=== PATIENT | male | born 1960 | race African-American/Black ===

== ENCOUNTER 2017-05-16 10:02 | Emergency (ER) | payer BC ==
[~2017-05-16] VITALS: Ht 182.9 cm; Wt 65.0 kg
[~2017-05-16 10:02] MED LIST: AMOXICILLIN500 MG OR; LORTAB 10 PO; NAPROSYN500 MG PO; NO HOME MEDS
[2017-05-16] MEDS ORDERED: TRAMADOL HYDROC50 MG PO (10:26)
[2017-05-16] MEDS ORDERED: EC-NAPROSYN500 MG PO (10:26)
[2017-05-16 10:30] VITALS: BP 141/81
== END 2017-05-16 10:30 | disposition home or self-care (01) | DRG 74 ==
LOC: ED 10:02
DX: M54.12 Radiculopathy, cervical region (principal)

== ENCOUNTER 2022-08-22 08:28 | Emergency (ER) | payer BC ==
[~2022-08-22] VITALS: Ht 182.9 cm; Wt 83.9 kg
[~2022-08-22 08:28] MED LIST changes: +EC-NAPROSYN500 MG PO; +TRAMADOL HYDROC50 MG PO
[2022-08-22 09:23] VITALS: BP 152/91
[2022-08-22 09:30] VITALS: BP 152/91
== END 2022-08-22 11:25 | disposition home or self-care (01) | DRG 392 ==
LOC: ED 08:28
DX: K59.00 Constipation, unspecified (principal)

== ENCOUNTER 2024-07-02 06:46 | Day surgery (SDC) | payer BC ==
[~2024-07-02] VITALS: Ht 182.9 cm; Wt 83.9 kg
[~2024-07-02 06:46] MED LIST changes: +ANALPRAM-HC RE; +ANUCORT-HC25 MG RE; +CENTRUM ULTRA WOMENS; +PREP H HC1 % EX
[2024-07-02] MEDS ORDERED: STERILE WATER FOR IRRIGATION 1,000 ML BTL IR ONE (06:56)
[2024-07-02] MEDS ORDERED: BUPIVACAINE HCL 0.25% 25 MG/10 ML SDV ONE (06:56)
[2024-07-02] MEDS ORDERED: BUPIVACAINE 133 MG/10 ML VIAL IJ ONE (06:57)
[2024-07-02] MEDS ORDERED: SODIUM CHLORIDE 20 ML/VIAL SDV ONE (06:59)
[2024-07-02] MEDS ORDERED: ceFAZolin Sodium 2 GM/VIAL SDV ONE (07:07)
[2024-07-02] MEDS ORDERED: FAMOTIDINE 10MG/ML 2ML SDV IV ONE (07:07)
[2024-07-02] MEDS ORDERED: SODIUM CHLORIDE 0.9% 100 ML IV ONE (07:08)
[2024-07-02] MEDS ORDERED: LACTATED RINGER'S 1,000 ML IV ONE (07:08)
[2024-07-02] MEDS ORDERED: PERCOCET 5/325M1 TAB PO (08:18)
[2024-07-02 09:13] VITALS: BP 153/98
[2024-07-02] MEDS ORDERED: GLYCOPYRROLATE 0.2 MG/ML IV ONE (15:45)
[2024-07-02] MEDS ORDERED: ACETAMINOPHEN 1,000 MG/100 ML VIAL IV ONE (15:45)
[2024-07-02] MEDS ORDERED: LIDOCAINE HCL 2% 2ML SDV IV ONE (15:45)
[2024-07-02] MEDS ORDERED: PROPOFOL 200 MG/20 ML VIAL IV ONE (15:45)
== END 2024-07-02 09:25 | disposition home or self-care (01) | DRG 349 ==
LOC: ORM 06:46
PROVIDERS: ATTEND Surgery
PROC: 06BY3ZC Excision of Hemorrhoidal Plexus, Percutaneous Approach (ICD-10-PCS; principal; 2024-07-02)
DX: K64.2 Third degree hemorrhoids (principal)
CPT/HCPCS: J0131; J0666; J0690; J1100; J1596